=== PATIENT | male | born 1930 | race Caucasian/White ===

== ENCOUNTER 2016-08-03 12:42 | Outpatient (CLI) | payer MEDICARE ==
--- NOTE | 2016-08-03 17:24 | RAD ---
THREE VIEWS LUMBAR SPINE: Date: 08-03-16 History: Bilateral low back pain for 1.5 weeks. No history of trauma. FINDINGS: Five lumbar type vertebral bodies are present with intact pedicles on frontal imaging. There is left lateral osteophyte formation at L2-3. Lateral imaging demonstrates mild superior endplate irregularity of L3 suggesting an age indetermina te mild superior endplate fracture. At L2-3 there is 5 mm of retrolisthesis and at L4-5 there is 6 mm of anterolisthesis. There is disc space narrowing and anterior osteophyte formation throughout the lumbar spine, most prominent at L1- 2, L2-3, and L3-4. There is lower lumbar spine facet hypertrophy bilaterally. IMPRESSION: Age indeterminate mild superior endplate fracture of L3. 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 POS: BECK
== END 2016-08-03 12:43 | disposition home or self-care (01) ==
LOC: MADRAD 12:42
PROVIDERS: ATTEND Physician Assistant
DX: M54.5 Low back pain (principal); M47.816 Spondylosis without myelopathy or radiculopathy, lumbar region
CPT/HCPCS: 72100